=== PATIENT | female | born 2000 | race Caucasian/White ===

== ENCOUNTER 2025-01-17 01:51 | Emergency (ER) | payer SELFPAY ==
[2025-01-17] MEDS ORDERED: Ketorolac Tromethamine 30 MG (1 mL) VIAL ONE (02:06)
[2025-01-17] MEDS ORDERED: Droperidol 5 MG/2 ML VIAL ONE (02:25)
[2025-01-17 02:42] LABS: #Basophils Less than 0.03 10x3/uL (0.0-0.2); #Eosinophils Less than 0.03 10x3/uL (0.0-0.5); #Monocytes 1.17 10x3/uL (0.0-1.1); #Neutrophils 8.40 10x3/uL (1.5-8.4); %Basophils 0.2 % (0.0-2.0); %Eosinophils 0.1 % (0.0-6.0); %Lymphocytes 12.1 % (18.0-47.0); %Monocytes 10.6 % (0.0-10.0); %Neutrophils 76.5 % (40.0-75.0); Hematocrit 31.2 % (34.9-44.5); Hemoglobin 10.8 g/dL (12.0-15.5); Mean Corpuscular Hemoglobin 30.2 pg (27.0-33.0); Mean Corpuscular Volume 87.2 fL (81.6-98.3); Platelet Count 199 10x3/uL (150-450); Red Blood Cell (RBC) Count 3.58 10x6/uL (3.90-5.03); White Blood Cell (WBC) Count 10.99 10x3/uL (3.5-10.5)
[2025-01-17 02:57] LABS: BHCG - Serum Negative (NEGATIVE); Pregs Control Background? CLEAR/WHITE (CLR/WHITE); Pregs Control Bar Appear? YES (CONTROL BAR)
[2025-01-17 03:05] LABS: ALT (SGPT) 34 U/L (Less than 34); AST (SGOT) 42 U/L (11-34); Acetaminophen Less than 10 mcg/mL (Less than 10); Albumin 3.7 g/dL (3.1-4.5); Alkaline Phosphatase 56 U/L (40-110); Anion Gap 17 mmol/L (10-20); BUN (Urea Nitrogen) 4 mg/dL (7.0-18.7); Bilirubin, Total 0.3 mg/dL (0.3-1.2); Calc. Creatinine Clearance 0 mL/min (70-130); Calcium 7.9 mg/dL (7.8-10.44); Chloride 115 mmol/L (98-107); Globulin 2.0 g/dL (2.4-3.5); Glucose 66 mg/dL (70-105); Lipase 29 U/L (8-78); Potassium 3.6 mmol/L (3.5-5.1); Salicylate Less than 8.0 mg/dL (Less than 8.0); Sodium 137 mmol/L (136-145)
[2025-01-17 03:09] LABS: Carbon Dioxide 9 mmol/L (22-29)
[2025-01-17 03:44] LABS: Glucose, Urine (Dipstick) Normal (Negative); Leukocyte Negative (Negative); Protein, Urine (Dipstick) 15 mg/dl (Neg-Trace); Specific Gravity, Urine 1.020 (1.005-1.030)
[2025-01-17 03:51] LABS: Bacteria/HPF 2+ HPF (None Seen); CAUTI Indications for Culture Pelvic or flank pain; RBC/HPF None Seen HPF (0-3); Urine Culture Reflex No No; WBC/HPF 0-3 HPF (0-3)
[2025-01-17 03:52] LABS: Cocaine Metabolite Screen Negative (Negative); THC/Cannabinoid Screen PRELIM POSITIVE (Negative); Tricyclic Screen Negative (Negative)
== END 2025-01-17 05:00 | disposition home or self-care (01) ==
LOC: CSHERS 01:51
DX: R11.16 Cannabis hyperemesis syndrome (principal); E86.0 Dehydration; N13.2 Hydronephrosis with renal and ureteral calculous obstruction
CPT/HCPCS: 36416; 74176; 80053; 80306; 80307; 81001; 83605; 83690; 84703; 85025; 93005; 96374; 96375; J1790; J1885